=== PATIENT | female | born 1960 | race Caucasian/White ===

== ENCOUNTER 2019-02-04 10:07 | Emergency (ER) | payer OTHER ==
[~2019-02-04] VITALS: Ht 165.1 cm; Wt 88.0 kg
[2019-02-04 10:21] VITALS: BP 132/101
--- NOTE | 2019-02-04 10:25 | NUR ---
C/O RT SHARP, INTERMITTEMNT ARM PAIN X1 MONTH THAT RADIATES UP TO RT NECK, 3/10 WHILE AT REST, 10/10 WHILE MOVING ARM. TREATED WITH DICLOFENAC FROM PCP WITH NO RELIEF. PT DENIES NUMBNESS, TINGLING,TRAUMA, NO VISIBLE EDEMA, EYTHEMA, OR DEFORMITY. CAP REFIL <3 SEC, PT ABLE TO WIGGLE FINGERS, LIMITED ROM DUE TO PAIN. SKIN IS PINK/WARM/DRY; AAOX4 WITH EVEN AND STEADY GAIT; VSS; PATIENT POSITIONED FOR COMFORT; HOB ELEVATED; BEDRAILS UP X1; BED DOWN. ER MD MADE AWARE OF PT STATUS.
--- NOTE | 2019-02-04 10:53 | NUR ---
Dr. Collins evaluating patient at bedside.
--- NOTE | 2019-02-04 10:57 | NUR ---
Leelee cespedes in [facility] - 02/04/19 at 1101 by JUAN DAVID YANNA AT BEDSIDE
--- NOTE | 2019-02-04 11:23 | NUR ---
certified hyperbaric technician at bedside.
[2019-02-04 11:36] LABS: BASOPHILS # (AUTO) 0.1 K/uL (0.00-0.22); BASOPHILS % (AUTO) 0.5 % (0.0-2.0); EOSINOPHILS # (AUTO) 0.1 K/uL (0-0.4); EOSINOPHILS % (AUTO) 0.7 % (0.0-4.0); HEMATOCRIT 39.9 % (36-48); HEMOGLOBIN 13.4 g/dL (12.0-16.0); MEAN CORPUSCULAR HEMOGLOBIN 31 pg (27-31); MEAN CORPUSCULAR HGB CONC 34 g/dL (33-37); MEAN CORPUSCULAR VOLUME 92.2 fL (80-94); MONOCYTES # (AUTO) 0.8 K/uL (0.8-1.0); MONOCYTES % (AUTO) 7.1 % (1.7-9.3); NEUTROPHILS # (AUTO) 9.2 K/uL (1.8-7.7); NEUTROPHILS % (AUTO) 82.7 % (42.2-75.2); PLATELET COUNT (AUTO) 244 K/uL (140-450); RED BLOOD CELL COUNT(AUTO) 4.33 MIL/uL (4.20-5.40); RED CELL DISTRIBUTION WIDTH 13.6 % (11.6-13.7); WHITE BLOOD COUNT (AUTO) 11.1 K/uL (4.8-10.8)
[2019-02-04 12:28] LABS: ANION GAP 15.2 (8-16); CREATININE 0.8 mg/dL (0.6-1.3); POTASSIUM 4.2 mmol/L (3.5-5.1)
--- NOTE | 2019-02-04 12:36 | NUR ---
PT RESTING IN BED, NO NEW NEEDS AT THIS TIME
[2019-02-04 13:20] VITALS: BP 134/82
--- NOTE | 2019-02-04 13:20 | NUR ---
Patient discharged with v/s stable. Written and verbal after care instructions given and explained. Patient verbalized understanding. Ambulatory with steady gait. All questions addressed prior to discharge. Advised to follow up with PMD.
== END 2019-02-04 13:20 | disposition home or self-care (01) ==
LOC: MED 10:07
DX: M25.511 Pain in right shoulder (principal); E03.9 Hypothyroidism, unspecified; M81.0 Age-related osteoporosis without current pathological fracture
CPT/HCPCS: 36415; 73030; 73060; 80048; 84484; 85025; 93005; 99284; Q0092